=== PATIENT | female | born 1955 | race Caucasian/White ===

== ENCOUNTER 2020-08-03 09:42 | Day surgery (SDC) | payer MEDICARE, OTHER ==
[~2020-08-03 09:42] MED LIST: Lactated Ringers 1,000 ML IV SCH; Lidocaine 2% 5 ML SDV ONE; Propofol 200 MG/20 ML SDV ONE; fentaNYL 100 MCG/2 ML SDV ONE
--- NOTE | 2020-08-03 10:34 | PCM.PREANE ---
Preanesthetic Assessment - Anesthesia/Transfusion/Family Hx Anesthesia History: Prior Anesthesia Without Reaction Family History of Anesthesia Reaction: No Transfusion History: No Prior Transfusion(s) Intubation History: Unknown - Review of Systems General: No Symptoms Pulmonary: No Symptoms Cardiovascular: No Symptoms Gastrointestinal: Other (positive cologuard test) Neurological: No Symptoms Other: Reports: None - Physical Assessment Height: 5 ft 1 in Weight: 86.636 kg ASA Class: 2 Mental Status: Alert & Oriented x3 Airway Class: Mallampati = 2 Dentition: Reports: Normal Dentition, Broken Tooth/Teeth (x1 upper left (back)) Thyro-Mental Finger Breadths: 3 Mouth Opening Finger Breadths: 3 ROM/Head Extension: Limited/Partial Lungs: Clear to Auscultation, Normal Respiratory Effort Cardiovascular: Regular Rate, Regular Rhythm - Allergies Allergies/Adverse Reactions: Allergies Allergy/AdvReac Type Severity Reaction Status Date / Time EVERETT Inhibitors Allergy Cough Verified 07/31/20 13:08 levomefolate calcium Allergy Fluid Verified 07/31/20 13:08 [From Metanx] Retention mecobalamin [From Metanx] Allergy Fluid Verified 07/31/20 13:08 Retention Penicillins Allergy Hives Verified 07/31/20 13:08 pyridoxal phosphate Allergy Fluid Verified 07/31/20 13:08 [From Metanx] Retention Wocamat-Yrn-Dqn Reductase Allergy Muscle Verified 07/31/20 13:08 Inhibitor Aches Sulfa (Sulfonamide Allergy Airway Verified 07/31/20 13:08 Antibiotics) Tightness sulfamethoxazole Allergy Hives Verified 07/31/20 13:08 [From Bactrim] trimethoprim [From Bactrim] Allergy Hives Verified 07/31/20 13:08 - Blood Blood Available: No - Anesthesia Plan Pre-Op Medication Ordered: None - Acknowledgements Anesthesia Type Planned: MAC Pt an Appropriate Candidate for the Planned Anesthesia: Yes Alternatives and Risks of Anesthesia Discussed w Pt/Guardian: Yes Pt/Guardian Understands and Agrees with Anesthesia Plan: Yes PreAnesthesia Questionnaire HEENT History: Reports: Allergic Rhinitis, Other (See Below) Other HEENT History: wears glasses Cardiovascular History: Reports: High Cholesterol, Hypertension Gastrointestinal History: Reports: GERD [employer] History: Reports: , Other (See Below) (h/o ovarian cyst) Musculoskeletal History: Reports: Osteoporosis, Other (See Below) (left hip pain) Neurological History: Reports: Other (See Below) Other Neuro History: hx of motion sickness Psychiatric History: Reports: Anxiety Endocrine/Metabolic History: Reports: Obesity/BMI 30+ (BMI 36.1) - Past Surgical History Head Surgeries/Procedures: Reports: None HEENT Surgical History: Reports: Oral Surgery Other HEENT Surgeries/Procedures: some teeth removed Female Surgical History: Reports: Breast Biopsy, D&C - SUBSTANCE USE Tobacco Use Status *Q: Never Tobacco User Recreational Drug Use History: No - HOME MEDS Home Medications: Home Meds Cholecalciferol (Vitamin D3) [Vitamin D3] 400 unit PO BID 03/14/14 [History] Cyanocobalamin (Vitamin B12) [Vitamin B12] 1,000 mcg PO DAILY 03/14/14 [History] Escitalopram [Lexapro] 10 mg PO DAILY 03/14/14 [History] Fish Oil/Liberty-3 Fatty Acids [Fish Oil] 2,000 mg PO DAILY 03/14/14 [History] Multivitamin [Multivitamins] 1 each PO DAILY 03/14/14 [History] Omeprazole [Prilosec] 20 mg PO ASDIRECTED 03/14/14 [History] Ascorbate Calcium [Vitamin C] 500 mg PO DAILY 07/31/20 [History] Aspirin [Adult Low Dose Aspirin EC] 81 mg PO ASDIRECTED 07/31/20 [History] Calcium Citrate/Vitamin D2 [Ayaz-Citrate Plus Vitamin D Tab] 1 tab PO DAILY 07/31/20 [History] Loratadine [Claritin] 10 mg PO DAILY 07/31/20 [History] Losartan [Cozaar] 100 mg PO QAM 07/31/20 [History] Verapamil HCl [Calan SR] 120 mg PO BEDTIME 07/31/20 [History] - CURRENT (IN HOUSE) MEDS Current Meds: Current Medications Lactated Ringer's (Ringers, Lactated) 1,000 mls @ 125 mls/hr IV ASDIRECTED ROSI Discontinued Medications Fentanyl (Sublimaze) Confirm Administered Dose 100 mcg .ROUTE .STK-MED ONE Stop: 08/03/20 07:02 Lidocaine (Xylocaine-Mpf 2%) Confirm Administered Dose 5 ml .ROUTE .STK-MED ONE Stop: 08/03/20 07:02 Propofol (Diprivan 20 Ml) Confirm Administered Dose 400 mg .ROUTE .STK-MED ONE Stop: 08/03/20 07:02
[2020-08-03] MEDS ORDERED: Midazolam 1 MG/ML 2 ML SDV ONE (10:55)
--- NOTE | 2020-08-03 11:33 | PCM.POSTAN ---
POST ANESTHESIA ASSESSMENT - MENTAL STATUS Mental Status: Alert, Oriented - VITAL SIGNS Vital Signs: Last Vital Signs Temp 36.8 C 08/03/20 10:46 Pulse 100 08/03/20 11:29 Resp 13 08/03/20 11:29 BP 117/75 08/03/20 11:29 Pulse Ox 92 L 08/03/20 11:29 - RESPIRATORY Respiratory Status: Respiratory Rate WNL, Airway Patent, O2 Saturation Stable - CARDIOVASCULAR CV Status: Pulse Rate WNL, Blood Pressure Stable - GASTROINTESTINAL GI Status: No Symptoms - PAIN Pain Score: 0 - POST OP HYDRATION Hydration Status: Adequate & Stable - OBSERVATIONS Free Text/Narrative:: No anesthesia problems
--- NOTE | 2020-08-03 11:45 | PCM48HPAN ---
Post Anesthesia Note - EVALUATION WITHIN 48HRS OF ANESTHETIC Vital Signs in Normal Range: Yes Patient Participated in Evaluation: Yes Respiratory Function Stable: Yes Airway Patent: Yes Cardiovascular Function Stable: Yes Hydration Status Stable: Yes Pain Control Satisfactory: Yes Nausea and Vomiting Control Satisfactory: Yes Mental Status Recovered: Yes Vital Signs: Last Vital Signs Temp 36.8 C 08/03/20 10:46 Pulse 100 08/03/20 11:29 Resp 13 08/03/20 11:29 BP 117/75 08/03/20 11:29 Pulse Ox 92 L 08/03/20 11:29 - COMMENTS/OBSERVATIONS Free Text/Narrative:: No anesthesia problems
--- NOTE | 2020-08-03 11:53 | PCM.OPNOTE ---
- General Post-Op/Procedure Note Date of Surgery/Procedure: 08/03/20 Operative Procedure(s): Diagnostic colonoscopy Findings: Transverse colon polyp, rectal polyp Pre Op Diagnosis: positive cologuard test Post-Op Diagnosis: Transverse colon polyp, rectal polyp [place] [facility] [place]geon: Orin Castano Condition: Good Free Text/Narrative:: Intake & Output 08/02/20 08/03/20 08/03/20 22:59 06:59 14:59 Intake Total 400 Balance 400
--- NOTE | 2020-08-04 10:48 | OR ---
SURGEON: ORIN CASTANO MD DATE OF PROCEDURE: 08/03/2020 PREOPERATIVE DIAGNOSIS: Positive Cologuard test. POSTOPERATIVE DIAGNOSES: 1. Transverse colon polyp. 2. Rectal polyp. PROCEDURE PERFORMED: Diagnostic colonoscopy with polypectomy. PRIMARY SURGEON: Orin Castano MD ANESTHESIA: MAC. INSTRUMENT USED: Olympus colonoscope. EXTENT OF EXAMINATION: To the cecum. PREPARATION: Good. LIMITATIONS: None. INDICATIONS FOR EXAMINATION: The patient is a 64-year-old female, who presented to clinic with a positive Cologuard test. The patient and I discussed the need for diagnostic colonoscopy. I explained the procedure, expected perioperative course, and the risks. The patient verbalized understanding and wishes to proceed. PROCEDURE IN DETAIL: The patient was brought to the endoscopy suite and placed in the left lateral decubitus position. A time-out was completed verifying the patient's name, age, date of , allergies, and procedure to be performed. Monitored anesthesia care was induced and continuous oxygen was provided via nasal cannula throughout the procedure. After adequate sedation was achieved, a digital rectal exam was performed. This exam was within normal limits. A well-lubricated colonoscope was inserted in the rectum and advanced under direct visualization to the level of the cecum. The cecum was identified by both visual and anatomic landmarks. A photograph was taken of the cecal cap, however, unable to retroflex the scope within the cecum due to looping of the scope more proximally. Scope was then fully withdrawn while examining the color, texture, anatomy, and integrity of mucosa from the cecum to the anal canal. The patient was found to have 2 sessile polyps, 1 in the transverse colon and 1 in the very proximal rectum. These were removed in piecemeal fashion using a cold biopsy forceps. The remainder of the colon appeared normal. The scope was retroflexed within the rectum to allow visualization of the anal canal opening. This appeared normal and a photograph was taken. The scope was then straightened out and fully withdrawn. The cecum to anus time was 7 minutes. The patient tolerated the procedure well and was transferred to the PACU in stable condition. ENDOSCOPIC DIAGNOSES: 1. Transverse colon polyp. 2. Rectal polyp. RECOMMENDATIONS: Follow up in clinic in 2 weeks. JONY / LUTHER /[id number]
== END 2020-08-03 11:58 | disposition home or self-care (01) ==
LOC: MW.SDS 09:42
PROVIDERS: ATTEND Surgery
DX: K63.5 Polyp of colon (principal); K62.1 Rectal polyp; I10 Essential (primary) hypertension; E66.9 Obesity, unspecified; E78.00 Pure hypercholesterolemia, unspecified; Z88.8 Allergy status to other drugs, medicaments and biological substances; Z88.0 Allergy status to penicillin; Z88.2 Allergy status to sulfonamides; Z88.1 Allergy status to other antibiotic agents; Z79.82 Long term (current) use of aspirin; Z79.899 Other long term (current) drug therapy; Z68.36 Body mass index [BMI] 36.0-36.9, adult
CPT/HCPCS: 45380; 88305; J2250; J2704; J3010; J7120; 00812

== ENCOUNTER 2021-10-04 23:47 | Emergency (ER) | payer MEDICARE, OTHER ==
[2021-10-05 01:01] LABS: CARBON DIOXIDE,CO2 28.4 mmol/L (21.0-32.0); POTASSIUM,K 4.3 mmol/L (3.5-5.1)
== END 2021-10-05 01:41 | disposition home or self-care (01) ==
LOC: MW.ED 23:47
DX: I10 Essential (primary) hypertension (principal); E78.00 Pure hypercholesterolemia, unspecified; K21.9 Gastro-esophageal reflux disease without esophagitis; E66.9 Obesity, unspecified; Z68.34 Body mass index [BMI] 34.0-34.9, adult; Z88.0 Allergy status to penicillin; Z88.8 Allergy status to other drugs, medicaments and biological substances; Z88.1 Allergy status to other antibiotic agents; Z88.2 Allergy status to sulfonamides; Z79.899 Other long term (current) drug therapy; Z79.82 Long term (current) use of aspirin
CPT/HCPCS: 36415; 80053; 85025; 99282; 99283

== ENCOUNTER 2023-10-28 06:28 | Day surgery (SDC) | payer MEDICARE, BC ==
[~2023-10-28 06:28] MED LIST changes: -Lactated Ringers 1,000 ML IV SCH; -Lidocaine 2% 5 ML SDV ONE; -Propofol 200 MG/20 ML SDV ONE; +Sodium Chloride 0.9% 10 ML Syringe FLUSH PRN; +Sodium Chloride 0.9% 2.5 ML Syringe FLUSH PRN; +Sodium Chloride 0.9% 20 ML SDV IV PRN; -fentaNYL 100 MCG/2 ML SDV ONE
[2023-10-28] MEDS: Lactated Ringers 1,000 ML IV SCH (07:00)
[2023-10-28] MEDS ORDERED: Lidocaine 2% 11 ML Jelly Filled Syringe ONE (07:29)
[2023-10-28] MEDS ORDERED: Ketamine HCL/NACL, ISO-OSM 50 MG/5 ML Syringe ONE (07:30)
[2023-10-28] MEDS ORDERED: Propofol 200 MG/20 ML SDV ONE (07:31)
[2023-10-28] MEDS ORDERED: propofoL 50 ML ONE ×2 (07:31→09:00)
[2023-10-28] MEDS ORDERED: fentaNYL 250 MCG/5 ML SDV ONE (07:31)
[2023-10-28] MEDS ORDERED: Methylene Blue 100 MG/10 ML SDV ONE (07:31)
[2023-10-28] MEDS ORDERED: Bupivacaine 0.25% 30 ML SDV ONE (07:31)
[2023-10-28] MEDS ORDERED: Famotidine 20 MG/2 ML SDV ONE (07:36)
[2023-10-28] MEDS ORDERED: Ropivacaine 0.5% 5 MG/ML 30 ML SDV ONE (07:36)
[2023-10-28] MEDS ORDERED: Morphine 10 MG/ML SDV ONE (07:37)
[2023-10-28] MEDS ORDERED: Water For Injection, Sterile 40 ML ONE (07:38)
[2023-10-28] MEDS ORDERED: Naloxone 0.4 MG/ML SDV IVPUSH PRN (07:40)
[2023-10-28] MEDS ORDERED: fentaNYL 50 MCG/ML SDV IVPUSH PRN (07:40)
[2023-10-28] MEDS ORDERED: Metoclopramide 10 MG/2 ML SDV IVPUSH PRN (07:40)
[2023-10-28] MEDS ORDERED: Ondansetron 4 MG/2 ML SDV IVPUSH PRN (07:40)
[2023-10-28] MEDS ORDERED: droPERidol 5 MG/2 ML SDV IVPUSH PRN (07:40)
[2023-10-28] MEDS ORDERED: HYDROmorphone 1 MG/ML Syringe IVPUSH PRN (07:40)
[2023-10-28] MEDS ORDERED: Dexamethasone 4 MG/ML 5 ML MDV ONE (07:40)
[2023-10-28] MEDS ORDERED: Albuterol 0.083% 2.5 MG/3 ML Neb Soln NEB PRN (07:40)
[2023-10-28] MEDS ORDERED: Morphine 2 MG/ML SYRINGE IVPUSH PRN (07:40)
[2023-10-28] MEDS ORDERED: Clindamycin Phosphate in D5W 300 MG in Premix Bag 1 BAG IV ONE (08:18)
[2023-10-28] MEDS ORDERED: Clindamycin Phosphate in D5W 600 MG in Premix Bag 1 BAG IV ONE (08:18)
[2023-10-28] MEDS ORDERED: Glycopyrrolate 0.2 MG/ML SDV ONE (08:42)
[2023-10-28] MEDS ORDERED: Rocuronium Bromide 50 MG/5 ML Syringe ONE (09:46)
[2023-10-28] MEDS ORDERED: Sugammadex Sodium 200 MG/2 ML VIAL IV ONE (09:46)
== END 2023-10-28 14:50 | disposition home or self-care (01) ==
LOC: MW.SDS 06:28
PROVIDERS: ATTEND Obstetrics & Gynecology
DX: D27.0 Benign neoplasm of right ovary (principal); N80.101 Endometriosis of right ovary, unspecified depth; N83.8 Other noninflammatory disorders of ovary, fallopian tube and broad ligament; N84.0 Polyp of corpus uteri; R10.2 Pelvic and perineal pain; F41.9 Anxiety disorder, unspecified; I10 Essential (primary) hypertension; K21.9 Gastro-esophageal reflux disease without esophagitis; E66.9 Obesity, unspecified; Z68.35 Body mass index [BMI] 35.0-35.9, adult; Z79.899 Other long term (current) drug therapy; Z98.890 Other specified postprocedural states; Z88.0 Allergy status to penicillin; Z88.2 Allergy status to sulfonamides; Z88.8 Allergy status to other drugs, medicaments and biological substances
CPT/HCPCS: 58558; 58661; 64488; A9270; J0131; J0665; J1100; J2270; J2704; J2795; J3010; J3490; J7120; Q9968; 00840

== ENCOUNTER 2024-08-27 06:29 | Day surgery (SDC) | payer MEDICARE, BC ==
[2024-08-27] MEDS: Lactated Ringers 1,000 ML IV SCH (07:04)
[2024-08-27] MEDS ORDERED: Propofol 200 MG/20 ML SDV ONE (07:42)
[2024-08-27] MEDS ORDERED: Lidocaine 2% 5 ML SDV ONE (07:42)
[2024-08-27] MEDS ORDERED: Midazolam 1 MG/ML 2 ML SDV ONE (07:44)
== END 2024-08-27 09:20 | disposition home or self-care (01) ==
LOC: MW.SDS 06:29
PROVIDERS: ATTEND Surgery
DX: K29.50 Unspecified chronic gastritis without bleeding (principal); K21.9 Gastro-esophageal reflux disease without esophagitis; K44.9 Diaphragmatic hernia without obstruction or gangrene; D50.9 Iron deficiency anemia, unspecified; I10 Essential (primary) hypertension; E66.9 Obesity, unspecified; Z88.8 Allergy status to other drugs, medicaments and biological substances; Z88.0 Allergy status to penicillin; Z88.2 Allergy status to sulfonamides; Z86.16 Personal history of COVID-19; Z68.33 Body mass index [BMI] 33.0-33.9, adult; Z79.899 Other long term (current) drug therapy
CPT/HCPCS: 43239; 88305; J2003; J2250; J2704; J7120; 00731; 99100